=== PATIENT | female | born 1960 | race Caucasian/White ===

== ENCOUNTER → 2021-01-07 | Outpatient (CLI) | payer OTHER ==
[~2021-01-07] MED LIST: LEVSOD75 PO; ONDA4ODT SL
== END | disposition home or self-care (01) ==
LOC: LAB 13:40 → LAB SHORT 13:40
DX: C43.61 Malignant melanoma of right upper limb, including shoulder (principal)
CPT/HCPCS: 88305

== ENCOUNTER → 2021-02-17 | Outpatient (CLI) | payer OTHER ==
[~2021-02-17] MED LIST changes: +PRED1
== END | disposition home or self-care (01) ==
LOC: LAB SHORT 12:31 → LAB 12:31
DX: D22.61 Melanocytic nevi of right upper limb, including shoulder (principal)
CPT/HCPCS: 88305

== ENCOUNTER 2021-02-19 07:58 | Day surgery (SDC) | payer OTHER ==
[~2021-02-19] VITALS: Ht 170.2 cm; Wt 99.5 kg
[~2021-02-19 07:58] MED LIST changes: -PRED1
[2021-02-19] MEDS ORDERED: PRED1 (08:53)
== END 2021-02-19 11:32 | disposition home or self-care (01) ==
LOC: ORSCSDS 07:58
PROVIDERS: Surgery
PROC: 0DJ08ZZ Inspection of Upper Intestinal Tract, Via Natural or Artificial Opening Endoscopic (ICD-10-PCS; principal; 2021-02-19 09:30)
PROC: 0DBL8ZX Excision of Transverse Colon, Via Natural or Artificial Opening Endoscopic, Diagnostic (ICD-10-PCS; principal; 2021-02-19 09:30)
DX: D50.9 Iron deficiency anemia, unspecified (principal); Z98.84 Bariatric surgery status; D12.3 Benign neoplasm of transverse colon; K57.30 Diverticulosis of large intestine without perforation or abscess without bleeding; K64.8 Other hemorrhoids; E03.9 Hypothyroidism, unspecified; Z79.899 Other long term (current) drug therapy; Z87.891 Personal history of nicotine dependence
CPT/HCPCS: 88305; J2250; J2704; J7120

== ENCOUNTER → 2021-03-10 | Outpatient (CLI) | payer OTHER ==
[~2021-03-10] MED LIST changes: +PRED1
== END | disposition home or self-care (01) ==
LOC: LAB 12:45 → LAB SHORT 12:45
DX: D22.61 Melanocytic nevi of right upper limb, including shoulder (principal)
CPT/HCPCS: 88305

== ENCOUNTER 2025-03-18 19:21 | Observation (INO) | payer MEDICARE ==
[~2025-03-18] VITALS: Ht 167.6 cm; Wt 89.4 kg
[~2025-03-18 19:21] MED LIST changes: -ASCO500; -ATOR10 PO; -FERROUS GLUCON324 M2; -MAGNESIUM; -POTA10T; -VITAMIN B121000 MCG; -Vitamin D1000 UNI1
[2025-03-18 20:00] LABS: BASOPHILS ABSOLUTE AUTO 0.02 K/mm3 (0.00-0.23); BASOPHILS PERCENT AUTO 0 % (0-2); EOSINOPHILS ABSOLUTE AUTO 0.05 K/mm3 (0.00-0.68); EOSINOPHILS PERCENT AUTO 1 % (0-6); Hematocrit 37.1 % (33.0-51.0); Hemoglobin 12.5 g/dL (11.5-16.0); IMMATURE GRAN ABSOLUTE AUTO 0.01 K/mm3 (0.00-0.10); IMMATURE GRAN PERCENT AUTO 0 % (0-1); LYMPHOCYTES ABSOLUTE AUTO 1.54 K/mm3 (0.84-5.20); LYMPHOCYTES PERCENT AUTO 22 % (21-46); MONOCYTES ABSOLUTE AUTO 0.51 K/mm3 (0.16-1.47); MONOCYTES PERCENT AUTO 7 % (4-13); Mean Corpuscular HGB Conc 33.7 g/dL (31.5-36.5); Mean Corpuscular Volume 92 fL (80-100); NEUTROPHILS ABSOLUTE AUTO 4.79 K/mm3 (1.96-9.15); NEUTROPHILS PERCENT AUTO 69 % (41-73); NRBC ABSOLUTE 0.00 K/mm3 (0.00-0.02); NRBC Auto 0.0 /100 WBC (0.0-0.2); Platelet Count 256 K/mm3 (150-400); RDW Coefficient Variation 12.4 % (11.7-14.2); RDW Standard Deviation 42.1 fL (35.1-46.3)
[2025-03-18 20:31] LABS: Alanine Aminotransfer (ALT/SGP 29.0 U/L (12-78); Albumin, Blood 4.2 g/dL (3.4-5.0); Albumin/Globulin Ratio 1.4 (0.8-1.8); Anion Gap 12.0 mmol/L (3-11); Aspartate Aminotrans (AST/SGOT 19.0 U/L (12-37); Bilirubin, Total 0.4 mg/dL (0.1-1.0); Blood Urea Nitrogen 18.0 mg/dL (8-24); CO2, Blood 23.0 mmol/L (21-32); Calcium, Blood 9.7 mg/dL (8.5-10.1); Chloride, Blood 104.0 mmol/L (98-108); Creatinine, Blood 0.89 mg/dL (0.40-1.00); Globulin, Blood 3.1 g/dL (2.2-4.0); Glucose, Blood 102.0 mg/dL (70-99); Potassium, Blood 3.9 mmol/L (3.5-5.5); Sodium, Blood 135.0 mmol/L (136-145); Total Protein, Blood 7.3 g/dL (6.4-8.2)
[2025-03-18] MEDS ORDERED: FLU VACC TS2025-26(6MOS UP)/PF 45 MCG/0.5 ML SYRINGE IM SCH (23:55)
[2025-03-19 00:17] VITALS: BP 123/97
[2025-03-19 04:19] LABS: BASOPHILS ABSOLUTE AUTO 0.03 K/mm3 (0.00-0.23); BASOPHILS PERCENT AUTO 1 % (0-2); EOSINOPHILS ABSOLUTE AUTO 0.11 K/mm3 (0.00-0.68); EOSINOPHILS PERCENT AUTO 2 % (0-6); Hematocrit 32.9 % (33.0-51.0); Hemoglobin 10.9 g/dL (11.5-16.0); IMMATURE GRAN ABSOLUTE AUTO 0.01 K/mm3 (0.00-0.10); IMMATURE GRAN PERCENT AUTO 0 % (0-1); LYMPHOCYTES ABSOLUTE AUTO 1.60 K/mm3 (0.84-5.20); LYMPHOCYTES PERCENT AUTO 34 % (21-46); MONOCYTES ABSOLUTE AUTO 0.51 K/mm3 (0.16-1.47); MONOCYTES PERCENT AUTO 11 % (4-13); Mean Corpuscular HGB Conc 33.1 g/dL (31.5-36.5); Mean Corpuscular Volume 93 fL (80-100); NEUTROPHILS ABSOLUTE AUTO 2.47 K/mm3 (1.96-9.15); NEUTROPHILS PERCENT AUTO 52 % (41-73); NRBC ABSOLUTE 0.00 K/mm3 (0.00-0.02); NRBC Auto 0.0 /100 WBC (0.0-0.2); Platelet Count 214 K/mm3 (150-400); RDW Coefficient Variation 12.7 % (11.7-14.2); RDW Standard Deviation 43.2 fL (35.1-46.3)
[2025-03-19 04:39] VITALS: BP 124/78
[2025-03-19 04:58] LABS: Alanine Aminotransfer (ALT/SGP 23.0 U/L (12-78); Albumin, Blood 3.1 g/dL (3.4-5.0); Albumin/Globulin Ratio 1.1 (0.8-1.8); Anion Gap 9.0 mmol/L (3-11); Aspartate Aminotrans (AST/SGOT 15.0 U/L (12-37); Bilirubin, Total 0.3 mg/dL (0.1-1.0); Blood Urea Nitrogen 19.0 mg/dL (8-24); CO2, Blood 27.0 mmol/L (21-32); Calcium, Blood 9.3 mg/dL (8.5-10.1); Chloride, Blood 105.0 mmol/L (98-108); Creatinine, Blood 0.94 mg/dL (0.40-1.00); Globulin, Blood 2.9 g/dL (2.2-4.0); Glucose, Blood 103.0 mg/dL (70-99); Potassium, Blood 3.7 mmol/L (3.5-5.5); Sodium, Blood 137.0 mmol/L (136-145); Total Protein, Blood 6.0 g/dL (6.4-8.2)
--- NOTE | 2025-03-19 05:57 | NUR ---
ADMIT AND SUMMARY: REPORT RECEIVED FROM IJEOMA ([employer]) AND PT T/F TO ROOM 355 AT 0005 VIA W/C. SHE'S A/OX4, WAS ORIENTED TO ROOM AND CALL SYSTEM AND IS UP AD NATALIE W/STEADY GAIT OBSERVED. PT HAS DENIED CP AND ALL S/S CARDIAC DISTRESS BUT DESCRIBED SENSATION OF HAVING "A KNOT AT THE BASE OF HER THROAT". SHE CONTRIBUTES THIS TO ANXIETY/GRIEF R/T HER DAUGHTER'S RECENT PASSING AND BECAME TEARFUL WHEN DISCUSSING IT. COMFORT AND SUPPORT PROVIDED AND PT CALMED W/THERAPEUTIC COMMUNICATION. SHE'S DENIED NEEDING PRN MEDS TO AID SLEEP OR EASE NERVES BUT RECEIVED ATARAX IN ER FOR GOOD EFFECT. SHE'S NSR ON TELE AT 60'S BPM AND ALL OTHER VSS/AFEBRILE. TROPS TRENDING DOWNWARD, NOW 84 AND ECHO IS PLANNED TODAY. NO ACUTE CHANGES. WILL REPORT TO DAY RN.
[2025-03-19] MEDS ORDERED: Levothyroxine Sodium 0.15 MG Tab PO SCH (06:00)
[2025-03-19 08:00] VITALS: BP 121/79
[2025-03-19 08:08] LABS: Thyroid Stimulating Hormone 4.39 uIU/mL (0.360-4.800)
[2025-03-19] MEDS ORDERED: Enoxaparin 40 MG/0.4 ML SYR SC SCH (09:00)
[2025-03-19 09:34] LABS: CHOL/HDL RATIO 3.1; Cholesterol 291 mg/dL (50-200); HDL Cholesterol 93 mg/dL (>39); LDL/HDL RATIO 1.9; Low Density Lipoprotein Chol 176 mg/dL (0-110); Triglycerides 109 mg/dL (30-160); Very Low Density Lipoprot Chol 21 mg/dL (6-32)
[2025-03-19 11:44] VITALS: BP 108/82
[2025-03-19] MEDS ORDERED: VITAMIN B121000 MCG (14:08)
[2025-03-19] MEDS ORDERED: ASCO500 (14:08)
[2025-03-19] MEDS ORDERED: Vitamin D1000 UNI1 (14:08)
[2025-03-19] MEDS ORDERED: FERROUS GLUCON324 M2 (14:09)
[2025-03-19] MEDS ORDERED: MAGNESIUM (14:10)
[2025-03-19] MEDS ORDERED: POTA10T (14:10)
[2025-03-19] MEDS ORDERED: ATOR10 PO (14:19)
--- NOTE | 2025-03-19 14:38 | NUR ---
DISCHARGE NOTE PT D/C HOME AT 1430. PT PROVIDED W/ VERBALA AND WRITTEN INSTRUCTIONS AND REPORTED UNDERSTANDING. PT A&OX4, VSS, AMB IND, TOLERATING PO, VOIDING, AND DENIED PAIN. BELONGINGS WERE RETURNED AND PT ESCOURTED OUT IND BY FRIEND.
== END 2025-03-19 15:02 | disposition home or self-care (01) ==
LOC: ER 19:21 → MEDS 19:22 → ERHOLD 19:22 → MEDS 03-19 00:15
PROVIDERS: Internal Medicine; Student in an Organized Health Care Education/Training Program; ADMIT Internal Medicine
DX: R07.89 Other chest pain (principal); E03.9 Hypothyroidism, unspecified; R79.89 Other specified abnormal findings of blood chemistry; D64.9 Anemia, unspecified; Z88.1 Allergy status to other antibiotic agents; Z79.890 Hormone replacement therapy; Z79.899 Other long term (current) drug therapy
CPT/HCPCS: 36415; 71045; 80053; 80061; 83690; 83880; 84439; 84443; 84481; 84484; 85025; 93005; 93010; 93306; 96372; 99285-25; A9270; G0008; G0378; J1650

== ENCOUNTER → 2025-03-18 | Outpatient (CLI) | payer MEDICARE ==
[~2025-03-18] MED LIST changes: +ANTIBIOTIC PO; +ASCO500; +ASCO500 PO; +ASPI81CH PO; +ATOR10 PO; +EUTHYROX50 MCG PO; +FERROUS GLUCON324 M2; +IRON18 MG PO; -LEVSOD75 PO; +MAGCHL64ER PO; +MAGNESIUM; +POTA10T; +POTA8 PO; +VITAMIN B121000 MCG; +VITAMIN B150 MG PO; +VITAMIN D310 MC4 PO; +Vitamin B-12100 MCG PO; +Vitamin D1000 UNI1
== END ==
LOC: LAB 18:52 → LAB SHORT 18:52
DX: R07.9 Chest pain, unspecified (principal)
CPT/HCPCS: 84484

== ENCOUNTER 2025-04-11 09:31 | Inpatient (IN) | payer MEDICARE ==
[~2025-04-11] VITALS: Ht 167.6 cm; Wt 89.4 kg
[2025-04-11] VITALS (14 sets, daily range): BP systolic 101–155; BP diastolic 62–96
[~2025-04-11 09:31] MED LIST changes: +ASCO500; +ATOR10 PO; +Chlorhexidine Mouth Care 15 ML UDC MT SCH; +FERROUS GLUCON324 M2; +MAGNESIUM; +POTA10T; +Ropivacaine 0.5% HCl/Pf 123.125 MG,EPINEPHrine HCL 0.25 MG,Ketorolac Tromethamine 15 MG... INFIL SCH; +Tranexamic Acid 100 ML IV SCH; +VITAMIN B121000 MCG; +Vitamin D1000 UNI1
[2025-04-11] MEDS ORDERED: FentaNYL Citrate 50 MCG/ML 5 ML Injection ONE (09:48)
[2025-04-11] MEDS ORDERED: Bupivacaine HCl 0.25% 30 ML Injection ONE (09:54)
[2025-04-11] MEDS ORDERED: Metoclopramide HCl 5MG / ML 2ML Vial ONE (09:54)
[2025-04-11] MEDS ORDERED: Ondansetron HCl 2 MG / ML 2ML Vial ONE (09:54)
[2025-04-11] MEDS ORDERED: Clindamycin 900mg in D5W 50ML 50 ML IV SCH (10:25)
--- NOTE | 2025-04-11 10:48 | NUR ---
Ambulatory in Day Surgery History, Chart, Medications and Allergies reviewed before start of procedure. Pre-Op teaching done. Pt verbalizes understanding. Patient States Post-Procedure ride home has been arranged.
[2025-04-11] MEDS ORDERED: Midazolam HCl 1MG / ML 2ML Vial ONE (10:50)
--- NOTE | 2025-04-11 10:56 | NUR ---
TIMEOUT PERFORMED WITH DR AKERS FOR INTERSCALENE BLOCK TO RIGHT SIDE FOR SHOULDER REPAIR. PROCEDURE STARTED 1037 PROCEDURE END 104; PT TOLERATED WELL.
[2025-04-11] MEDS ORDERED: HYDROmorphone HCl/Pf 1MG SYR ONE (11:10)
[2025-04-11] MEDS ORDERED: HYDROmorphone HCl/Pf 1MG SYR IV PRN ×2 (11:20→11:40)
[2025-04-11] MEDS ORDERED: Magnesium Hydroxide Conc 10 ML UDC PO PRN (11:25)
[2025-04-11] MEDS ORDERED: Prochlorperazine Edisylate 10 mg Vial IV PRN (11:30)
[2025-04-11] MEDS ORDERED: Ondansetron HCl 2 MG / ML 2ML Vial IV PRN ×2 (11:30→11:40)
[2025-04-11] MEDS ORDERED: Metoclopramide HCl 5MG / ML 2ML Vial IV PRN ×2 (11:30→11:40)
[2025-04-11] MEDS ORDERED: FLU VACC TS2025(65UP)/MF59C/PF 45 MCG/0.5 ML SYRINGE IM SCH (11:35)
[2025-04-11] MEDS ORDERED: Morphine Sulfate 4 MG/1 ML Injection IV PRN (11:40)
[2025-04-11] MEDS ORDERED: FentaNYL Citrate 50 MCG/ML 2 ML Injection IV PRN ×2 (11:40→11:45)
[2025-04-11] MEDS ORDERED: ePHEDrine Sulfate 50 MG/ML 1ML Injection IV PRN (11:45)
[2025-04-11] MEDS ORDERED: Ketorolac Tromethamine 15mg Vial IV SCH (12:00)
[2025-04-11] MEDS ORDERED: ePHEDrine Sulfate 50 MG/ML 1ML Injection ONE (12:40)
[2025-04-11] MEDS ORDERED: Sugammadex Sodium 200 MG/2ML SDV (100 MG/ML) ONE (12:56)
--- NOTE | 2025-04-11 14:52 | NUR ---
POST OP S/P R TSA REVERSE. TELFA/TEGADERM DRESSING IS CDI. RUE IN SLING. PT REPORTS DECREASED SENSATION TO RUE R/T NERVE BLOCK. ABLE TO WIGGLE FINGERS. CAP REFILL <3 SECONDS. PT DENIES PAIN. POST OP VSS AND IN PROGRESS. OFFERING SIPS OF CLEARS AND CRACKERS. ORIENTED TO CALL LIGHT AND TREATMENT PLAN. PT VERB AN UNDERSTANDING. AT BEDSIDE FOR SUPPORT.
[2025-04-11] MEDS ORDERED: ASPI81CH PO (16:20)
--- NOTE | 2025-04-11 17:21 | NUR ---
DC'D @1710 POST ARRIVAL - VSS. AXO4. ARM REMAINED IN IMMOBILIZER. DENIED NEED FOR PAIN MEDICATION. SENSATION RETRUNING TO HAND, ABLE TO WIGGLE FINGERS AND MOVE ARM WELL. VOIDED. TOLERATED PO INTAKE WELL. AMBULATED WELL. WORKED WITH OCCUPATIONAL THERAPY - TOLERATED WELL. PT EXPRESSING DESIRE TO GO HOME. DC INSTRUCTIONS PROVIDED TO PT AND IN ROOM. COLD PACK PACKED UP AND PROVIDED. EXTRA DRESSING SUPPLIED FOR SHOULDER IF NEEDED. NO DRINAGE NOTED TO DRESSING. IV PULLED. PT WALKED OUT OF ROOM TO PERSONAL VEHICLE @1710.
[2025-04-11] MEDS ORDERED: Clindamycin Phosphate 300 MG in NS 50 ML IV SCH (18:00)
[2025-04-12] MEDS ORDERED: Levothyroxine Sodium 0.15 MG Tab PO SCH (06:00)
== END 2025-04-11 17:10 | disposition home or self-care (01) | DRG 483 ==
LOC: ORSCMMR 09:31 → ORD 11:00 → SURS 11:18 → ORSCMMR 11:18 → SURS 14:18
PROVIDERS: ADMIT Orthopaedic Surgery
PROC: 0RRJ00Z Replacement of Right Shoulder Joint with Reverse Ball and Socket Synthetic Substitute, Open Approach (ICD-10-PCS; principal; 2025-04-11 11:00)
DX: M19.011 Primary osteoarthritis, right shoulder (principal); M75.101 Unspecified rotator cuff tear or rupture of right shoulder, not specified as traumatic; E66.9 Obesity, unspecified; Z96.651 Presence of right artificial knee joint; Z98.84 Bariatric surgery status; Z88.1 Allergy status to other antibiotic agents; Z68.32 Body mass index [BMI] 32.0-32.9, adult
CPT/HCPCS: 73030; 97165; 97535; A9270; C1713; C1776; J0166; J0735; J1171; J1885; J2250; J2405; J2704; J2765; J2795; J3010; J7120